=== PATIENT | female | born 1965 | race Hispanic/Latino ===

== ENCOUNTER 2018-03-23 11:08 | Emergency (ER) | payer BC ==
[~2018-03-23] VITALS: Ht 162.6 cm; Wt 84.3 kg
[~2018-03-23 11:08] MED LIST: ALBUTEROL SULF8.5 GM IH; ASPIRIN325 MG PO; DAILY VALUE1 EACH PO; FLONASE16 G1 BOTH NARES; PHENERGAN-CODE120 ML PO; PRAVASTATIN SOD40 MG PO; PREDNISONE50 MG PO; VALTREX1000 MG PO; ZITHROMAX Z-PA250 MG PO
[2018-03-23 12:03] LABS: BASOPHIL (%) 0.5 % (0-1); EOSINOPHIL (%) 2.8 % (0-5); EOSINOPHIL COUNT 0.2 K/uL (0-0.3); HEMOGLOBIN 13.8 G/DL (11.9-15.5); IMMATURE GRANULOCYTE (%) 0.2 % (0.0-0.7); LYMPHOCYTE (%) 42.7 % (15-42); LYMPHOCYTE COUNT 2.6 K/uL (1.0-2.8); MCH 27.9 PG (29.0-34.0); MCHC 34.5 G/DL (30.0-36.0); MONOCYTE (%) 10.7 % (3-12); MONOCYTE COUNT 0.6 K/uL (0-0.8); NEUTROPHIL (%) 43.1 % (45-76); NEUTROPHIL COUNT 2.6 K/uL (1.8-6.4); PLATELET COUNT 240 K/uL (156-360); RBC DIS.WIDTH-CV 13.7 % (11.8-14.6); RBC DIS.WIDTH-SD 40.1 % (39-53); RED BLOOD COUNT 4.94 M/uL (3.80-5.20)
[2018-03-23 12:11] LABS: D-DIMER ELISA < 150.00 ng/mLDDU (<230)
[2018-03-23 12:12] LABS: CHLORIDE 106 mEq/L (99-109)
[2018-03-23 12:13] LABS: POTASSIUM 4.1 mEq/L (3.7-5.4); SODIUM 142 mEq/L (136-147)
[2018-03-23 12:14] LABS: GLUCOSE 92 mg/dL (70-99)
[2018-03-23 12:18] LABS: CREATININE 0.8 mg/dL (0.6-1.3); GFR ESTIMATE (CALCULATED) > 59 mL/min/
[2018-03-23 12:19] LABS: UREA NITROGEN (BUN) 13 mg/dL (9-23)
[2018-03-23] MEDS ORDERED: PHENERGAN-CODE120 ML PO (12:54)
[2018-03-23] MEDS ORDERED: ZITHROMAX Z-PA250 MG PO (12:54)
[2018-03-23] MEDS ORDERED: PREDNISONE50 MG PO (12:54)
[2018-03-23] MEDS ORDERED: VENTOLIN HFA18 GM IH (12:54)
[2018-03-23 13:15] VITALS: BP 111/75
== END 2018-03-23 13:25 | disposition home or self-care (01) ==
LOC: EME 11:08
PROVIDERS: Emergency Medicine
DX: J20.9 Acute bronchitis, unspecified (principal)
CPT/HCPCS: 71045; 80048; 85025; 85379; 93005; 94640; 99281; 99284